=== PATIENT | male | born 1960 | race Caucasian/White ===

== ENCOUNTER 2017-09-02 13:22 | Emergency (ER) | payer OTHER, SELFPAY ==
[2017-09-02 13:30] VITALS: BP 166/105; PULSE 84; RESP 14; TEMP 36.4; O2SAT 98
--- NOTE | 2017-09-02 13:31 | DI.RAD.S_ITS ---
PROCEDURE: XR FINGER LT MIN 2V INDICATIONS: lac volar over PIP index finger cannot bend TECHNIQUE: AP hand, 2 views of the left second finger(s) acquired. COMPARISON: None. FINDINGS: Bones: No fractures or dislocations. No suspicious bony lesions. Soft tissues: No suspicious soft tissue calcifications. IMPRESSION: No acute radiographic findings. If pain persists, repeat study in 5-7 days is recommended to exclude occult fracture. Dictated by: Mery Pearce M.D. on 09/02/2017 at 13:51 Approved by: Mery Pearce M.D. on 09/02/2017 at 13:51
--- NOTE | 2017-09-02 13:33 | ED.UPPEXIN ---
HPI - Extremity Injury (Upper) General Chief Complaint: Skin/Abscess/Foreign Body Stated Complaint: CUT LT POINTER FINGER Time Seen by Provider: 09/02/17 13:26 Source: patient Mode of arrival: ambulatory Limitations: no limitations History of Present Illness HPI narrative: 57-year-old male here for laceration to his left index finger. Patient states that just prior to arrival he cut himself with a new fishing knife. Has not washed out up to this point. States that he is up-to-date on his tetanus shot. Has not tried anything for it prior to arrival Related Data Home Medications Medication Instructions Recorded Confirmed No Known Home Medications 09/02/17 09/02/17 Allergies Allergy/AdvReac Type Severity Reaction Status Date / Time No Known Drug Allergies Allergy Verified 09/02/17 13:33 Review of Systems Constitutional Denies fever(s) Musculoskeletal Comments: Tingling to the distal portion of his left index finger cut his left index finger Integumentary/Breasts Comments: Cut to the left index finger Neurologic Comments: Tingling to the distal portion of his left index finger Hematologic/Lymphatic Denies easy bleeding and Denies easy bruising [facility] Social History Smoking Status: Never smoker Comment: Reviewed patient's past medical Surgery family and social history Exam Initial Vital Signs Initial Vital Signs: Vital Signs Temperature 97.5 F L 09/02/17 13:30 Pulse Rate 84 09/02/17 13:30 Respiratory Rate 14 09/02/17 13:30 Blood Pressure 166/105 H 09/02/17 13:30 Pulse Oximetry 98 09/02/17 13:30 Const General: cooperative, healthy appearing, comfortable, well developed, well groomed and No acute distress Orientation: alert, awake and oriented x3 Cardio Pulses: radial pulses present on the left Skin Other: 3 cm laceration volar aspect of left index finger directly over the PIP joint Neuro Other: Decreased sensation on the radial aspect of the left index finger Extrem Other: Patient unable to flex at the PIP or PIP joint. Is able to flex at the MCP joint rest of his left hand unremarkable except for the laceration as described in the skin section Procedures Laceration Repair Laceration 1: Site: upper extremity Side (If applicable): left Size (cm): 3 Description: linear Depth: simple, single layer Local Anesthetic: lidocaine 1% Amount of anesthesia used (mL): 2 Pre-repair: wound explored Skin layer closed with: nylon Size (cm): 4-0 Number of sutures: 3 Course Orders Ordered: ED Orders 09/02/17 13:31 XR finger LT min 2V Stat Discontinued Medications Diphtheria/Tetanus/Acell Pertussis (Adacel) 0.5 ml IM .ONCE ONE Stop: 09/02/17 14:19 Last Admin: 09/02/17 14:27 Dose: 0.5 ml Vital Signs - 8 hr 09/02/17 13:30 Temperature 97.5 F L Pulse Rate 84 Respiratory Rate 14 Blood Pressure 166/105 H Pulse Oximetry 98 MDM - Extremity Injury (Upper) Imaging Data Finger x-ray: Radiologist's impression: PROCEDURE: XR FINGER LT MIN 2V INDICATIONS: lac volar over PIP index finger cannot bend TECHNIQUE: AP hand, 2 views of the left second finger(s) acquired. COMPARISON: None. FINDINGS: Bones: No fractures or dislocations. No suspicious bony lesions. Soft tissues: No suspicious soft tissue calcifications. IMPRESSION: No acute radiographic findings. If pain persists, repeat study in 5-7 days is recommended to exclude occult fracture. Dictated by: Mery Pearce M.D. on 09/02/2017 at 13:51 Approved by: Mery Pearce M.D. on 09/02/2017 at 13:51 [facility] Narrative Medical decision making narrative: No fractures on the x-ray. Wound was loosely closed as above. Patient's tetanus was updated. Wound was extensively irrigated. Secondary to the fact that the patient cannot bend at the PIP and PIP joint I do have concerns for a tendon injury. Discussed the case with Dr. Saul who recommended loosely closing and volar splinting and having the patient follow up on Monday. I discussed all this with the patient. He was given follow-up instructions. He expressed understanding and agreement with plan. Discharge Plan Departure Patient Disposition: Home, Self-Care Clinical Impression: Laceration of finger of left hand Instructions: How to Take Care of Your Splint, DI for Finger Flexor Tendon Injury Activity Restrictions/Additional Instructions: Contact the [facility] on Monday at [phone] Dr. Patel is the hand surgeon. I discussed her case with Dr. Saul who is on-call on Saturday. Keep the splint on and keep it clean and dry. Prescriptions: No Action No Known Home Medications RF: 0
[2017-09-02] MEDS: TET,DIPH,PERTUSS(ACELL),VAC/PF 0.5 ML SYRINGE IM (14:27)
[2017-09-02 14:41] VITALS: BP 174/106; PULSE 88; RESP 14; O2SAT 97
== END 2017-09-02 14:51 | disposition home or self-care (01) ==
PROVIDERS: Emergency Provider Emergency Medicine
DX: S61.211A Laceration without foreign body of left index finger without damage to nail, initial encounter (principal); W26.0XXA Contact with knife, initial encounter
CPT/HCPCS: 12002; 29125; 73140; 90471; 99283; 90715